=== PATIENT | female | born 1955 | race Caucasian/White ===

== ENCOUNTER 2019-10-14 00:15 | Outpatient (CLI) | payer OTHER, SELFPAY ==
[2019-10-14 18:12] LABS: SARS-CoV-2 RNA PCR Negative
== END 2019-10-14 00:16 | disposition home or self-care (01) ==
LOC: ANHCOVIDDT 00:15
PROVIDERS: PCP Emergency Medicine; Visit Provider Surgery Plastic and Reconstructive Surgery
DX: Z01.818 Encounter for other preprocedural examination (principal); Z11.59 Encounter for screening for other viral diseases
CPT/HCPCS: 87635; C9803; U0003

== ENCOUNTER 2019-10-16 02:06 | Day surgery (SDC) | payer OTHER, SELFPAY ==
[2019-10-03 10:30] VITALS: BMI 39.3
[2019-10-16] VITALS (9 sets, daily range): BP systolic 113–142; BP diastolic 62–82; PULSE 74–86; RESP 16–24; TEMP 36–36.4; O2SAT 95–100
--- NOTE | 2019-10-16 06:34 | WPDANESEPPF ---
Anes - Initial Pre Proc Eval Procedure: Operation Date: 10/16/19 07:30 Proposed Procedures p Bilateral Breast Reduction - Logan Rivas MD Date/Time: 10/16/19 06:34 Surgeon: Logan Rivas MD Pre Op Diagnosis: macromastia Patient Data Age: 64 Gender: F Height: 1.57 m Weight: 97.52 kg Allergies Allergy/AdvReac Type Severity Reaction Status Date / Time codeine Allergy Unknown Itching Verified 10/08/19 07:43 Home Medications Medication Instructions Recorded Confirmed Type bilberry 100 mg PO DAILY 10/03/19 10/03/19 History biotin-keratin [Biotin Plus 1 tablet PO DAILY 10/03/19 10/03/19 History Keratin] calcium carbonate-vitamin D3 2 cap PO DAILY 10/03/19 10/03/19 History [Calcium 600 + D(3)] loratadine 10 mg PO DAILY 10/03/19 10/03/19 History magnesium 1 tablet PO DAILY 10/03/19 10/03/19 History vitamin B complex 1 tablet PO DAILY 10/03/19 10/03/19 History vitamin E 400 unit PO DAILY 10/03/19 10/03/19 History hydrocodone 5 mg-acetaminophen 325 1 tablet PO Q6H PRN #15 tablet 10/08/19 10/08/19 Rx mg tablet ondansetron HCl 4 mg tablet 4 mg PO Q6H PRN #30 tablet 10/08/19 Rx Patient hx anesthesia problems: none Family hx anesthesia problems: none PMFSH Past Medical History Medical History (Updated 10/16/19 @ 06:31 by Lazaro Booth DO) Osteoarthritis Surgical History Surgical History (Updated 10/15/19 @ 12:50 by Lazaro Booth DO) History of cholecystectomy History of hysterectomy Family History Family History (Updated 12/25/13 @ 07:13 by DOCTOR UNKNOWN) Father Cerebrovascular accident Mother Acute myocardial infarction Social History Social History Smoking status: Never smoker Alcohol intake: never Anes - Eval Final PreProcedure Day of Procedure 10/16/19 06:34 Patient weight: obese Heart: regular rate and rhythm Lungs: clear to auscultation and normal air movement Airway: Mallampati scale class II Neurological: alert and oriented Last oral intake: >/= 8 hours ASA classification: II Emergent: no Anesthetic plan: proceed Anesthesia type and monitoring: general LMA and standard monitoring Informed Consent: The patient's anesthetic plan and its attendant risks and benefits were discussed with the patient/family/POA. Questions were solicited and answers provided to the satisfaction of the patient/family/POA.
[2019-10-16] MEDS: LACTATED RINGERS 1,000 ML 30 ML IV CONT ×2 (06:40→10:53)
[2019-10-16 06:49] LABS: Urine Cotinine NEGATIVE
--- NOTE | 2019-10-16 06:49 | WPDHPUPDATE1 ---
History and Physical Update Update Date/Time: 10/16/19 06:49 History and Physical has been reviewed, including an updated exam of the patient. There are NO changes in the patient's condition. Risks, benefits, and alternatives have been discussed and questions answered. Patient agrees to proceed with procedure.
--- NOTE | 2019-10-16 07:08 | PM.PROC ---
Procedure Note - Detailed Date of procedure: 10/16/19 Pre-op diagnosis: macromastia Post-op diagnosis: same Procedure performed: Bilateral breast reduction Description of procedure: She is here today for bilateral breast reduction. Previously and again today the risks, benefits, alternatives were discussed in extensive detail. I wanted her to be very realistic about the risks involved as well as expectations. We discussed aftercare and what to monitor for. She understands we can never guarantee final breast size and there will always be asymmetry. She understands she will have lateral fullness. She would like to be signficiantly smaller. I was very upfront and honest about the risks of sensation change and even nipple loss (). Made sure answered all of her questions to her satisfaction today and consent was obtained. She was marked in the preoperative holding area with their verification. The patient was taken to the operating room placed supine on the operating table. Anesthesia was provided by anesthesiology. She was prepped and draped in a standard sterile fashion. A surgical time-out was taken. Stab incisions were made and I tumessed with a tumescent solution. I marked out the nipple-areolar complex at 42 mm. I then de-epithelialized the pedicle. The pedicle was well left well more than 2 cm in thickness. I then removed the inferior portion of the breast as well as the central keel to get shape based on preoperative planning. At this point copiously irrigated with saline solution and verified a strict hemostasis. I reapproximated the pillars using a 2-0 PDS as well as along the IMF. I tailor tacked the breast into place with lola. A 4mm basket canula was used to complete S.A.F.E. suction lipectomy of bilateral lateral breasts to improve symmetry. She was placed in a sitting position. I verified the nipple-areolar complex position based on preoperative markings, intraoperative measurements, and observation which were in full agreement. This nipple-areolar complex was marked at 42 mm in size. I then placed supine and de-epithelialized this. Nipple-areolar complex was inset with 3-0 Monocryl. I closed the vertical incision with 3-0 Monocryl in the IMF with 3-0 stratafix. Then everything was closed using a running subcuticular 4-0 Monocryl followed by Steri-Strips. Left areaola had good color / cap refill. Left was improving at the end of the case (I did use tumescent). prior to final closure I recheck the pedicle. It was broad based, no pressure, not kinked, nothing of concern. I will have her come to office post-op to recheck. A dressing was placed followed by surgical bra. Patient was awoke and taken to PACU without difficulty. All instrument sponge counts were correct at the end of the case. Anesthesia: GLMA Surgeon: Logan Rivas MD Estimated blood loss (mL): 20 Drains: No Packing: No Pathology: yes Complications: No immediate complications Condition: stable Disposition: PACU Findings: Superior medial pedicle, inverted t reduction. Removed Right: 821. grams Left 806 grams
[2019-10-16] MEDS: ceFAZolin 2 GM/D5W 50 ML 2 GM/50 ML BAG IVPB (07:26)
--- NOTE | 2019-10-16 10:29 | SUR.OPER ---
EBL:50cc
== END 2019-10-16 13:32 | disposition home or self-care (01) ==
PROVIDERS: PCP Emergency Medicine; Visit Provider Surgery Plastic and Reconstructive Surgery
PROC: 0HBV0ZZ Excision of Bilateral Breast, Open Approach (ICD-10-PCS; CPT 19318; principal; 2019-10-16 07:30)
DX: N62 Hypertrophy of breast (principal); N60.32 Fibrosclerosis of left breast; N60.31 Fibrosclerosis of right breast; N60.82 Other benign mammary dysplasias of left breast; N60.81 Other benign mammary dysplasias of right breast; E66.9 Obesity, unspecified; Z68.41 Body mass index [BMI] 40.0-44.9, adult
CPT/HCPCS: 19318; 36415; 80307; 88305; J0171; J0330; J0690; J1100; J2250; J2405; J2704; J2710; J3010; J7120; L8000

== ENCOUNTER 2020-04-12 09:52 | Emergency (ER) | payer OTHER, SELFPAY ==
[2020-04-12 09:57] VITALS: BP 159/100; PULSE 93; RESP 19; TEMP 35.9; O2SAT 94
[2020-04-12 10:13] LABS: Add Urine Microscopic? YES; Appearance Urine Cloudy (Clear); Bilirubin Urine Negative (Negative); Color Urine Amber (Yellow); Glucose Urine UA Negative (Negative); Ketones Urine Negative (Negative); Leukocyte Esterase Ur Trace LEU/UL (Negative); Mucus Urine Rare /lpf; Nitrate Urine Negative (Negative); Protein Urine Negative (Negative); Specific Grav Ur 1.019 (1.001-1.035); Squamous Epithelial Cell Urine Moderate /hpf (Few); Urobilinogen Urine Negative mg/dL (<2.0)
[2020-04-12 10:14] LABS: Blood Urine Negative (Negative)
--- NOTE | 2020-04-12 10:17 | ED.GENADULT ---
HPI - General Adult General Chief complaint: Urogenital-Female Stated complaint: possible UTI Time Seen by Provider: 04/12/20 09:56 Source: patient Mode of arrival: ambulatory Limitations: no limitations History of Present Illness HPI narrative: Patient is a 64-year-old female who presents to emergency department for evaluation of episodic hematuria that is described as a light pink-tinged urine over the weekend with frequency of urination that resolved patient notes no discomfort or symptoms currently patient on arrival in no distress Related Data Home Medications Medication Instructions Recorded Confirmed Biotin Plus Keratin 1 tablet PO DAILY 10/03/19 10/03/19 Calcium 600 + D(3) 2 cap PO DAILY 10/03/19 10/03/19 bilberry 100 mg PO DAILY 10/03/19 10/03/19 loratadine 10 mg PO DAILY 10/03/19 10/03/19 magnesium 1 tablet PO DAILY 10/03/19 10/03/19 vitamin B complex 1 tablet PO DAILY 10/03/19 10/03/19 vitamin E 400 unit PO DAILY 10/03/19 10/03/19 Allergies Allergy/AdvReac Type Severity Reaction Status Date / Time codeine Allergy Unknown Itching Verified 04/12/20 10:03 Review of Systems Review of Systems: All systems reviewed & are unremarkable except as noted in HPI and below PMFSH Past Medical History Medical History (Updated 04/12/20 @ 10:52 by Ori Tang PA-C) Osteoarthritis Surgical History Surgical History History of cholecystectomy History of hysterectomy Family History Family History Father Cerebrovascular accident Mother Acute myocardial infarction Social History Social History Smoking status: Never smoker Alcohol intake: never Exam Narrative: Exam Narrative: GENERAL: Well-appearing, well-nourished, and in no acute distress. HEAD: Normocephalic, atraumatic. EYES: PERRLA and EOMI. ENT: Nares clear, no rhinorrhea or epistaxis. Mucous membranes moist. CHEST: Clear to auscultation. No respiratory distress. No wheezes rales or rhonchi HEART: Regular rate and rhythm. No murmur heard. EXTREMITIES: Normal range of motion. No edema. SKIN: Warm, dry, no rash. NEURO: No focal deficits. Alert and oriented x3. PSYCH: Normal mood and affect. Course Course Emergency Course: Patient evaluated the emergency department will be discharged treated for urinary tract infection patient agrees to follow with primary care given reasons to return given the symptomology patient will be treated urine will be cultured Vital Signs Vital signs: Vital Signs Temperature 96.6 F L 04/12/20 09:57 Pulse Rate 93 04/12/20 09:57 Respiratory Rate 19 04/12/20 09:57 Blood Pressure 159/100 H 04/12/20 09:57 Pulse Oximetry 94 04/12/20 09:57 Temperature 96.6 F L 04/12/20 09:57 Pulse Rate 93 04/12/20 09:57 Respiratory Rate 19 04/12/20 09:57 Blood Pressure 159/100 H 04/12/20 09:57 Pulse Oximetry 94 04/12/20 09:57 Medical Decision Making MDM Narrative Medical decision making narrative: Patient with ABC intact and stable vital signs stable. Patient is afebrile nontoxic-appearing no distress and without emesis. Patient denying any pain. Will be treated for urinary tract infection with follow-up with primary care Differential Diagnosis Differential Diagnosis: Urinary tract infection, abdominal pain, urolithiasis, hematuria Vital Signs Vital Signs: Vital Signs Temperature 96.6 F L 04/12/20 09:57 Pulse Rate 93 04/12/20 09:57 Respiratory Rate 19 04/12/20 09:57 Blood Pressure 159/100 H 04/12/20 09:57 Pulse Oximetry 94 04/12/20 09:57 Temperature 96.6 F L 04/12/20 09:57 Pulse Rate 93 04/12/20 09:57 Respiratory Rate 19 04/12/20 09:57 Blood Pressure 159/100 H 04/12/20 09:57 Pulse Oximetry 94 04/12/20 09:57 Lab Data Labs: Lab Results 04/12/20 Range/Units 10:01 Urine Color
[2020-04-12] MEDS: CEPHALEXIN 500 MG CAPSULE PO (10:59)
== END 2020-04-12 11:01 | disposition home or self-care (01) ==
PROVIDERS: Emergency Medicine Emergency Medical Services; Emergency Provider Family Medicine; PCP Emergency Medicine
DX: N39.0 Urinary tract infection, site not specified (principal); M19.90 Unspecified osteoarthritis, unspecified site
CPT/HCPCS: 81001; 87086; 99283; A9270

== ENCOUNTER 2022-05-18 08:45 | Outpatient (CLI) | payer OTHER, SELFPAY ==
--- NOTE | ~2022-05-18 | DEXA_ITS ---
Bone Density Report Name: TIFFANY VALADEZ Age: 66 Sex: Female Ethnicity: White Date of : 1955 Indication: postmenopausal; screening for osteoporosis; hysterectomy; Referring Provider: WONG, JACQUE Pedersen Study: Bone densitometry was performed. Exam Date: May 18, 2022 Accession number: [id number] Bone Density: Region BMD T-score Z-score Classification AP Spine(L1-L4) 0.837 -1.9 0.0 Osteopenia Femoral Neck (Left) 0.680 -1.5 0.1 Osteopenia Total Hip (Left) 0.834 -0.9 0.4 Normal Femoral Neck (Right) 0.634 -1.9 -0.3 Osteopenia Total Hip (Right) 0.826 -0.9 0.4 Normal Total Hip Mean 0.830 -0.9 0.4 Normal World Health Organization criteria for BMD impression classify patients as: Normal (T-score at or above -1.0), Osteopenia (T-score between -1.0 and -2.5), or Osteoporosis (T-score at or below -2.5). 10-year Fracture Risk(1): Major Osteoporotic Fracture 9.5% Hip Fracture 1.3% Reported Risk Factors: [place] (), Neck BMD=0.634, BMI=41.3 (1) FRAX(R) Version 3.08. Fracture probability calculated for an untreated patient. Fracture probability may be lower if the patient has received treatment. Clinical Information Provided by Patient: Has used the following medications: Vitamin D, Calcium Has the following medical conditions: Hysterectomy Patient maximum height was 62 Menopause Age: 45 Drinks caffeinated beverages Onset of menses at age 12 Number of children 3 Impression: The patient has low bone mass, based on the Total Spine T-score. The patient has an estimated ten-year risk of hip fracture of 1.3% and an estimated ten-year risk of major fracture of 9.5%, based on the WHO FRAX algorithm. Discussion: BONE DENSITY IS LOW AT ONE OR MORE SKELETAL SITES. This patient's lowest T-score is low at one or more skeletal sites. It meets the World Health Organization's (WHO) criteria for ?low bone mass? (T-score between -1.0 and -2.5). The patient's 10-year risk of fracture as calculated by FRAX is less than the threshold where pharmacological therapy is recommended by the National Osteoporosis Foundation (NOF). However, all treatment decisions require clinical judgment and consideration of individual patient factors, including patient preferences, comorbidities, previous drug use, risk factors not captured in the FRAX model (e.g., frailty, falls, vitamin D deficiency, increased bone turnover, interval significant decline in bone density) and possible under or overestimation of fracture risk by FRAX. The patient should follow a healthful lifestyle (good nutrition with adequate calcium and vitamin D, and appropriate weight-bearing exercise). Follow-Up: Consider repeating this study in 2 to 3 years to reassess this patient's status, or sooner if there is some new clinical in
--- NOTE | ~2022-05-18 | MM_ITS ---
EXAMINATION: MM screening [facility] BI w [place] HISTORY: Screening mammogram TECHNIQUE: Craniocaudal and mediolateral oblique 3-D tomosynthesis images were obtained and synthetic 2-D images were generated. CAD analysis was submitted and interpreted. COMPARISON: 04/10/2019, 04/27/2017, 02/20/2012 BREAST PARENCHYMAL COMPOSITION: The breasts are heterogeneously dense, which may obscure small masses . FINDINGS: There has been interval bilateral reduction mammoplasty. No suspicious mass, calcification, or architectural distortion are identified in either breast to suggest malignancy. There has been no suspicious interval change. IMPRESSION: 1. No mammographic evidence of malignancy. 2. Recommend routine screening mammography in one year. BI-RADS Category 1: Negative Reviewed, dictated and finalized at location A. [employer]
== END 2022-05-18 08:46 | disposition home or self-care (01) ==
PROVIDERS: PCP Internal Medicine; Visit Provider Internal Medicine
DX: Z12.31 Encounter for screening mammogram for malignant neoplasm of breast (principal); Z78.0 Asymptomatic menopausal state; M85.89 Other specified disorders of bone density and structure, multiple sites
CPT/HCPCS: 77063; 77067; 77080

== ENCOUNTER 2025-01-27 13:39 | Outpatient (CLI) | payer OTHER, SELFPAY ==
--- OUTSIDE RECORDS SUMMARY | 2024-12-20 19:00 | XMS_ITS | Continuity of Care Document ---
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 Name Role Phone Chastity Valentine MD Unavailable Unavailable Allergies, Adverse Reactions, Alerts Substance Reaction Status Criticality No Known Allergies Active No Inform ation Medications Medication Instructions Dosage Effective Dates (start - stop) Status Comments B Complex 1 (with folic acid) 0.4 mg tablet 1 table daily - Active lutein 20 mg capsule take 1 tablet by oral route every other day - Active Ortho-Tabs 500 mg calcium-400 unit-15 mcg tablet 2 tablets daily - Active Claritin 10 mg tablet take 1 tablet by oral route every day - Active Vitamin D3 50 mcg (2,000 unit) tablet take 1 tablet by oral route every day 1 tablet - Active famotidine 20 mg tablet take 1 tablet by oral route 2 times every day as needed 20 MG - Active magnesium 400 mg (as magnesium oxide) tablet take 1 tablet by oral route every day 1 tablet - Active biotin 5,000 mcg disintegrating tablet take 1 tablet by oral route every day 1 tablet - Active iron 325 mg (65 mg iron) tablet take 1 tablet by oral route every day 325 MG - Active bilberry 100 mg capsule take 1 tablet by oral route every day 1 tablet - Active Procedures Procedure Date CBC, INC PLATELETS AND DIFFERENTIAL COMPREHEN METABOLIC PANEL CMP LIPID PANEL FALL RISK ASSESSMENT DOC'D PRES/ABSN URINE INCON ASSESS Pt inelig neg scrn depres MED LIST DOCD IN RCRD PREVENTATIVE-EST: 65 & OVER BODY MASS INDEX DOCD SYST BP LT 130 MM HG DIAST BP < 80 MM HG ROUTINE VENIPUNCTURE IL FORM CHARGE CBC, INC PLATELETS AND DIFFERENTIAL COMPREHEN METABOLIC PANEL CMP 4 LIPID PANEL Pt inelig neg scrn depres FALL RISK ASSESSMENT DOC'D PRES/ABSN URINE INCON ASSESS OFFICE [id number] BODY MASS INDEX DOCD SYST BP LT 130 MM HG DIAST BP < 80 MM HG Admin influenza virus vac FLU VAC NO PRSV 4 SANJUANITA, 0.5mL DOSAGE ROUTINE VENIPUNCTURE IL Pt inelig neg scrn depres OFFICE [id number] BODY MASS INDEX DOCD SYST BP LT 130 MM HG DIAST BP 80-89 MM HG LIPID PANEL FALL RISK ASSESSMENT DOC'D PRES/ABSN URINE INCON ASSESS Pt inelig neg scrn depres OFFICE [id number] BODY MASS INDEX DOCD SYST BP GE 130 - 139MM HG DIAST BP 80-89 MM HG ROUTINE VENIPUNCTURE IL CBC, INC PLATELETS AND DIFFERENTIAL COMPREHEN METABOLIC PANEL CMP 2 LIPID PANEL THYROID STIMULATION HORMONE(TSH) 2021 ROUTINE VENIPUNCTURE BP OFFICE/OUTPATIENT VISIT EST 22 PNEUMOVAX ADM MEDICARE Pneumococcal Conjugate Vaccine (PCV20) N OFFICE [id number] BODY MASS INDEX DOCD SYST BP GE 130 - 139MM HG DIAST BP 80-89 MM HG Advance Directives Directive Yes / No Effective Date File Name No Information Encounters Encounter Description Practice Location Reason(s) For Visit Diagnoses Date Provider Providers Copied on Encounter [facility], [address], [place], [place], [id number] , tel: [phone] [facility] No Information 5 Serge Haywood. [address] [place], [place], [address] , [place]. tel: [phone] Referring Provider: Chastity Lao, [address] [place], [address] . tel:[phone] [facility], [address], [place], [place], [address] , tel: [phone] [facility] No Information 5 Zurdodanny Godfreyn. [address], [id number] , [place]. tel: [phone] Referring Provider: Chastity Lao, [address] [place], [address] . tel:[phone] PREVENTATIVE -EST: 65 & OVER [facility], [address], [place], [place], [address] , tel: [phone] [facility] preventive exam (chief complaint) Class 3 ObesityBody mass index [BMI] 40.0-44.9, adultRoutine medical examDyslipidemia 5 Serge Haywood. [address] [place], [place], [address] , [place]. tel: [phone] Referring Provider: Chastity Lao, [address] [place], [address] . tel:[phone] [facility], [address], [place], [place], [address] , [place] tel: [phone] [facility] Hyperlipidemia, unspecified hyperlipidemia type 5 Serge Haywood. [address] [place], [place], [address] , [place]. tel: [phone] Referring Provider: Chastity Lao, [address] [place], [address] . tel:[phone] [facility], [address], [place], [place], [address] , [place] tel: [phone] [facility] No Information 4 Serge Haywood. [address] [place], [place], [address] , [place]. tel: [phone] Referring Provider: Chastity Lao, [address] [place], [address] . tel:[phone] [facility], [address], [place], [place], [address] , tel: [phone] [facility] No Information 4 Zurdo Godfreyn. [address] [facility], [address], [id number] , [place]. tel: [phone] Referring Provider: Chastity Lao, [address] [place], [address] . tel:[phone] OFFICE [id number]-LC PANDED [facility], [address], [place], [place], [address] , [place] tel: [phone] [facility] Chronic Conditions (chief complaint) Morbid (severe) obesity due to excess caloriesBody mass index [BMI] 40.0-44.9, adultHyperlipidemi a, unspecified hyperlipidemia typeGastroesophage al reflux disease without esophagitisRoutine medical exam 4 Serge Haywood. [address] [place], [place], [address] , [place]. tel: [phone] Referring Provider: Chastity Lao, [address] [place], [address] . tel:[phone] OFFICE [id number]-BF PANDED [facility], [address], [place], [place], [address] , [place] tel: [phone] [facility] Chronic conditions (chief complaint)C hronic Conditions (chief complaint) Body mass index [BMI] 39.0-39.9, adultHyperlipidemi a, unspecified hyperlipidemia type 3 Serge Haywood. [address] [place], [place], [address] , [place]. tel: [phone] Referring Provider: Chastity Lao, [address] [place], [address] . tel:[phone] [facility], [address], [place], [place], [address] , tel: [phone] [facility] No Information 3 Zurdo Khan. [address] [place] [address], [address], [id number] , [place]. tel: [phone] Referring Provider: Cassidy Cohen, [address] [place], [address] . tel:[phone] OFFICE [id number]-LQX-WH [facility], [address], [place], [place], [address] , [place] tel: [phone] [facility] preventive exam (chief complaint) Gastroesophageal reflux disease without esophagitisRoutine medical examHyperlipidemia , unspecified hyperlipidemia typeMorbid (severe) obesity due to excess caloriesBody mass index [BMI] 40.0-44.9, adultHot flashes 3 Vicki Benjamin. [address] [place], [place], [address] , [place]. tel: [phone] Referring Provider: Chastity Lao, [address] [place], [address] . tel:[phone] BP OFFICE/OUTPA TIENT VISIT EST [facility], [address], [place], [place], [address] , [place] tel: [phone] [facility] Elevated blood pressure reading without diagnosis of hypertensionScreen ing for lipoid disordersMorbid obesity 2 Serge Haywood. [address] [place], [place], [address] , . tel:[phone] Referring Provider: Chastity Lao, [address] [place], [address] . tel:[phone] OFFICE [id number]-BXC-DI [facility], [address], [place], [place], [address] , [place] tel: [phone] [facility] New patient (chief complaint) Morbid (severe) obesity due to excess caloriesBody mass index [BMI] 40.0-44.9, adultRoutine medical examElevated BP without diagnosis of hypertensionGastro esophageal reflux disease without esophagitis 2 Serge Haywood. [address] [place], [place], [address] , . [phone] Referring Provider: Chastity Lao, [address] [place], [address] . tel:[phone] Family History Family Member Type Diagnosis Age At Onset Father Problem Cardiovascular disease Father Problem Alcoholism Father Problem Alzheimer's disease Immunizations Vaccine Date Status Comments Fluzone Quad, preservative free, split virus, 0.5mL dosage administered Source: New Immuniza tion Record Pneumococcal conjugate PCV20 administered Source: New Immunization Record Flublok, quadrivalent, preservative free, 0.5mL dosage administered Note: [facility] ; Source: Other Registry Pfizer (Fox-Sucrose) COVID1 9 Vaccine, 0.3mL per dose, 2 doses, administered 21 days apart administered Note: [facility] Alejandrei gallito ; Source: Other Registry Pfizer (Fox-Sucrose) COVID1 9 Vaccine, 0.3mL per dose, 2 doses, administered 21 days apart administered Note: [facility] Alejandrei gallito ; Source: Other Registry Payers Payer name Insurance type Covered republican ID Authoriza tion(s) [employer] [place] [id number] [employer] [place] [id number] Social History Type Description Quantity Date Captured Comments Alcohol Use Details Unknown Caffeine Use Details Unknown Tobacco Use Status No Information Smoking Status No Information Sex Female Sexual Orientation Straight or heterosexual Gender Identity Female Chief Complaint And Reason For Visit No Information Reason For Referral Reason For Referral No Information Plan Of Treatment Date Type Action Status Goal Dietary manageme nt education, guidance, and counseling completed Goal Dietary manageme nt education, guidance, and counseling completed Goal Dietary manageme nt education, guidance, and counseling completed Goal Dietary manageme nt education, guidance, and counseling completed Goal Dietary manageme nt education, guidance, and counseling completed Referral Referred To: [address] [place] [address], [phone] Ordered: SCREENING MAMMOGRAM (CAD) ordered Referral Referred To: [address] [place] [address], [address] [phone] Ordered: DEXA of spine and hip ordered Appointment [facility] BOOKED Patient Education Healthy Upper Back: Exe octaviaises completed History Of Present Illness Encounter Date Complaint History Of Prese nt Illness preventive exam Postmenopausal: Type: natural. Diet healthy.The patient states Patient's exercise level is moderate and frequency is 3-4 times/week. The patient does not use tobacco. The patient does drink alcohol. Additional information: Routine PE done todaySee scanned in offline visit note for HPIReviewed fasting labs with pt.Has hyperlipidemia and refuses statin medication and wants to continue to try to work on low fat diet and exercise.Has class 3 obesity with BMI over 40 trying to limit intake of fatty foods. Feels she needs to increase her activity and exercise. . Chronic Conditions *See Chronic Conditions HPI Chronic Conditions *See Chronic Conditions HPI Chronic conditions preventive exam Her menses is ab sent. Negative for: breast discharge, breast lump(s) and breast pain.Postmenopausal: Type: natural. Menopausal symptoms positive for: hot flashes. Diet healthy. She reports getting calcium supplement daily. She reports taking a vitamin D supplement daily.The patient states her exercise level is moderate and frequency is 3-4 times/week. The patient does not use tobacco. She does drink alcohol. Additional information: Colon Ca screening - UTD on cologuard 04/2022 - repeat in 04/2025Mammogram - UTD 04/2022 - repeat in 4Dexa - UTD low bone mass - repeat in 5COVID - needs bivalent boosterFlu - UTDShingrix - DUE NOWPneumonia - UTD Prevnar 20Takes pepcid for GERD as needed. Needs this rarely. This is stableNoted to have HLD a few months ago and was prescribed rosuvastatin 3 months ago. She did not start this medication and wanted to try exercise to see if LDL would reduce with lifestyle changes. Lipid panel ordered today. She has been on statin in the past but reported having some muscle cramps.Patient reports having hot flashes about 3 times per week. She reports this is lasting for a few minutes. She reports this is not too bothersome. She reports upper back pain that comes and goes. She reports this was a dull ache that lasted for a week recently. She has had this in the past. She reports putting pressure to area does help. She has been told this is stress in the past. She has used heating pad which helps. She has no chest pain, diaphoresis, nausea, SOB, fatigue.. New patient Pt. here to get established as new patient. Due for colonoscopy but prefers to do Cologaurd testing instead.Due for Prevnar 20- no prior pneumococcal vaccine.Tries to do some regular walking but feels she could increase her exercise.BP mildly elevated today. No prior h/o HTN and not on BP lowering medication previously.Has occasional GERD and takes over the counter acid carlos a as needed. Tries to avoid foods that trigger GERD symptoms. Functional Status Date Functional Assessmen t No Information Instructions Date Instruction Additional Infor clare continue to work on low fat diet and regular exercise Related to Class 3 Obesity See offline scanned in visit note for plan Related to Routine medical exam See offline scanned in visit note for plan Related to Dyslipidemia Dietary management e ducation, guidance, and counseling Related to Body mass index (BMI) 40.0-44.9, adult Exercise flu vaccine given to dayFollowup in1 year for physical and fasting labsRecommend the Shingrix vaccine and Tdap (tetanus) vaccine at the pharmacyYou are due for a mammogram- call [facility] at [phone] will be due for bone density in Aprilou will be due for colon cancer screening in April 2024 Related to Routine medical exam You can take famotid ine as needed for acid refluxtry to limit foods that trigger GERD symptoms Related to Gastroesophageal reflux disease without esophagitis Continue to work on low fat diet and increase regular exercise with goal of walking at least 30 minutes 3-5 times per week Related to Morbid (severe) obesity due to excess calories Check labs today Con tinue to work on low fat diet and increase regular exercise with goal of walking at least 30 minutes 3-5 times per week Related to Hyperlipidemia, unspecified hyperlipidemia type Fall Risk Prevention Dietary management e ducation, guidance, and counseling Related to Body mass index (BMI) 40.0-44.9, adult Exercise Urinary Incontinence Check labs prior to your next visit in 6 monthsContinue to work on low fat diet and increase regular exercise with goal of walking at least 30 minutes 3-5 times per week Related to Hyperlipidemia, unspecified hyperlipidemia type Dietary management e ducation, guidance, and counseling Related to Body mass index (BMI) 39.0-39.9, adult Monitor symptoms and let us know if this does not improveYou can take black cohosh Related to Hot flashes Continue to work on low fat diet and increase regular exercise with goal of walking at least 30 minutes 3-5 times per week Related to Morbid (severe) obesity due to excess calories Continue rosuvastati n Continue to work on low fat diet and increase regular exercise with goal of walking at least 30 minutes 3-5 times per week Related to Hyperlipidemia, unspecified hyperlipidemia type You can take over th e counter famotidine as needed for acid refluxtry to limit foods that trigger GERD symptoms Related to Gastroesophageal reflux disease without esophagitis Followup in 6 months We recommend getting the updated bivalent COVID booster if you have not yet. You should wait at least 2 months after your last COVID vaccine to get this updated bivalent vaccine Recommend the new Shingrix vaccine- check with insurance to find out what your insurance coverage is for this and go to the pharmacy for administration if you wish to proceed with vaccination.You will be due for mammogram in April 2023You will be due for bone density in Aprilou will be due for colon cancer screening in April 2025 Related to Routine medical exam Fall Risk Prevention Dietary management e ducation, guidance, and counseling Related to Body mass index (BMI) 40.0-44.9, adult Urinary Incontinence Prevnar 20 given toemile Jaquez getting the new bivalent COVID vaccine at the pharmacyCologuard stool study ordered - please return this as soon as possibleREturn next week for labs and BP check Try to walk at least 150 minutes per weekrecommend getting Shingles vaccine (Shingrix) at the pharmacySchedule your mammogram and bone density Related to Routine medical exam You can take over th e counter famotidine as needed for acid refluxtry to limit foods that trigger GERD symptoms Related to Gastroesophageal reflux disease without esophagitis REturn next week for labs and BP check Try to limit salt intaketry to increase regular walkingcheck your home BP and bring in readings next week Related to Elevated BP without diagnosis of hypertension Recommend diet low i n saturated fat and increase regular exercise Related to Morbid (severe) obesity due to excess calories Immunizations Dietary management e ducation, guidance, and counseling Related to Body mass index (BMI) 40.0-44.9, adult Assessments Type Assessment Date No Information Patient Care Teams Name Effective Dates (start - stop) Status Members No Information
--- NOTE | ~2025-01-27 | MM_ITS ---
EXAMINATION: MM screening brodie BI w britany HISTORY: Screening TECHNIQUE: Craniocaudal and mediolateral oblique 3-D tomosynthesis images were obtained and synthetic 2-D images were generated. CAD analysis was submitted and interpreted. COMPARISON: Comparison to multiple prior studies sequentially, with oldest reviewed study dated 04/27/2017. BREAST PARENCHYMAL COMPOSITION: Not dense: There are scattered areas of fibroglandular density. FINDINGS: There are changes of previous breast reduction surgery bilaterally. There is no evidence of suspicious mass, calcification, or architectural distortion to suggest malignancy in either breast. There has been no suspicious interval change. IMPRESSION: 1. No mammographic evidence of malignancy. 2. Recommend routine screening mammography in one year. BI-RADS Category 1: Negative Reviewed, dictated and finalized at location B.
--- OUTSIDE RECORDS SUMMARY | 2025-01-27 13:54 | XMS_ITS | Clinical Summary ---
Author Organization [facility] Address [address] [place] [address] Care Team Providers Care Jewel Supervisor Name Role Phone Unavailable Primary Care Provider Unavailabl e Social History Tobacco Use Types Packs/Day Years Used Date Smoking Tobacco: Never Assessed Comments Unknown Sex and Gender Information Value Date Recorded Sex Assigned at Not on file Legal Sex Female 5:33 PM CDT Gender Identity Not on file Sexual Orientation Not on file Plan of Treatment Health Maintenance Due Date Last Done Comments Colorectal Cancer Screening Colonoscopy (10 Years) 1955 Hepatitis C 07/03/1973 DTaP, Tdap and Td Vaccines ( 1 - Tdap) 07/03/1974 Mammogram Screening 1995 Pneumococcal Vaccine: 50+ Ye ars (1 of 1 - PCV) 07/03/2005 Zoster Vaccines (1 of 2) 07/03/2005 Dexa Scan (General) 07/03/2020 COVID-19 Vaccine ( - 2023-2 5 season) 2024 RSV Immunization or 60+ Years (1 - 1-dose 75+ series) 07/03/2030 Meningococcal B Vaccine Aged Out No l onger eligible based on patient's age to complete this topic Meningococcal Vaccine Aged Out No nelson rochelle eligible based on patient's age to complete this topic RSV Immunizations Under 20 Months Aged Out No longer eligible based on patient's age to complete this topic
== END 2025-01-27 13:40 | disposition home or self-care (01) ==
LOC: ANHFOHIMG 13:42
PROVIDERS: PCP Internal Medicine; Visit Provider Internal Medicine
DX: Z12.31 Encounter for screening mammogram for malignant neoplasm of breast (principal); Z13.820 Encounter for screening for osteoporosis
CPT/HCPCS: 77063; 77067